=== PATIENT | female | born 1980 | race African-American/Black ===

== ENCOUNTER 2019-11-02 22:08 | Emergency (ER) | payer MEDICAID ==
[~2019-11-02] VITALS: Ht 157.5 cm; Wt 97.7 kg
[2019-11-02 22:10] VITALS: BP 159/96
[2019-11-02] MEDS ORDERED: KETOROLAC 30 MG/1 ML IM ONE (22:30)
[2019-11-02] MEDS ORDERED: PROCHLORPERAZINE 5 MG/ML, 2ML IM ONE (22:30)
[2019-11-02] MEDS ORDERED: DIPHENHYDRAMINE 25 MG CAPSULE PO ONE (22:30)
[2019-11-02] MEDS ORDERED: DIPHENHYDRAMINE 25 MG CAPSULE ONE (22:51)
[2019-11-02] MEDS ORDERED: KETOROLAC 30 MG/1 ML ONE (22:51)
[2019-11-02] MEDS ORDERED: PROCHLORPERAZINE 5 MG/ML, 2ML ONE (22:51)
== END 2019-11-02 23:58 | disposition home or self-care (01) ==
LOC: ED 23:15
DX: G43.909 Migraine, unspecified, not intractable, without status migrainosus (principal); H53.149 Visual discomfort, unspecified
CPT/HCPCS: 96372; 99284; J0780; J1885; Q0163